=== PATIENT | male | born 1990 | race Caucasian/White ===

== ENCOUNTER 2017-04-26 13:30 | Emergency (ER) | payer OTHER ==
[2017-04-26] MEDS ORDERED: LORazepam 2 MG/ML MDV IVPUSH ONE (13:58)
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
[2017-04-26 15:35] VITALS: BP 108/59
== END 2017-04-26 15:28 | disposition home or self-care (01) ==
LOC: JD.ED 13:30
DX: F41.0 Panic disorder [episodic paroxysmal anxiety] (principal); Z79.899 Other long term (current) drug therapy; Z88.0 Allergy status to penicillin
CPT/HCPCS: 36415; 80053; 85025; 86140; 93005; 96374; 99285; J2060; 99284